=== PATIENT | male | born 1995 | race Caucasian/White ===

== ENCOUNTER 2017-04-06 04:39 | Emergency (ER) | payer SELFPAY ==
[~2017-04-06] VITALS: Ht 167.6 cm; Wt 80.0 kg
[2017-04-06 04:41] VITALS: Ht 167.6 cm; Wt 80.0 kg
[2017-04-06] MEDS ORDERED: ALBUTEROL 0.083% (NEB) 2.5 MG/3 ML AMP HHN STA (04:48)
[2017-04-06 04:50] VITALS: TEMP 98
[2017-04-06] MEDS ORDERED: predniSONE 20 MG TAB PO ONE (05:00)
[2017-04-06] MEDS ORDERED: IPRATROPIUM (NEB) 0.5 MG/2.5 ML AMP HHN ONE (05:00)
[2017-04-06 05:30] VITALS: RESP 17
[2017-04-06] MEDS ORDERED: PRED20TA PO (06:02)
[2017-04-06] MEDS ORDERED: ALBU18HF INHALATION (06:02)
--- NOTE | 2017-04-06 06:09 | ERD ---
ER Documentation Chief Complaint Date/Time DATE: 04/06/17 TIME: 06:05 Chief Complaint short of breath tonight after an argument HPI 1-year-old male presents with shortness of breath and wheezing it feels like his asthma exacerbation after he was in an argument. Set asthma for most of his life. Getting breathing treatment in the ambulance. Denies chest pain. Has not had fevers and chills lately. ROS All systems reviewed and are negative except as per history of present illness. Medications Home Meds Active Scripts Prednisone* (Prednisone*) 20 Mg Tab, 40 MG PO DAILY, #4 TAB Prov:DUKE VALDIVIA DO 04/06/17 Albuterol Sulfate* (Ventolin HFA*) 18 Gm Hfa.aer.ad, 2 PUFF INHALATION Q4H, #1 INHALER Prov:DUKE VALDIVIA DO 04/06/17 Allergies Allergies: Coded Allergies: No Known Allergy (Unverified , 04/06/17) PMhx/Soc History of Surgery: Yes (R) HAND) Hx Respiratory Disorders: Yes (ASTHMA) Hx Alcohol Use: Yes Hx Substance Use: No Hx Tobacco Use: No Smoking Status: Never smoker Physical Exam Vitals Vital Signs Date Time Temp Pulse Resp B/P Pulse Ox O2 Delivery O2 Flow Rate FiO2 04/06/17 05:30 83 17 97/70 100 04/06/17 05:28 80 20 99 Nasal Cannula 1.0 04/06/17 04:50 98.0 98 17 119/74 100 Room Air 04/06/17 04:50 Nasal Cannula 2.0 04/06/17 04:41 98.1 104 22 140/68 100 Physical Exam Const: [] Mild distress Resp: Mild bilateral anterior wheezing, no accessory muscle use Cardio: Regular rate and rhythm, no murmurs Skin: No petechiae or rashes Ext: No cyanosis, or edema Neur: Awake and alert and oriented 3, no focal deficits Psych: Normal Mood and Affect Results 24 hrs Current Medications Medications (Trade) Dose Ordered Sig/Ambrose Route PRN Reason Start Time Stop Time Status Last Admin Dose Admin Albuterol (Proventil 0.083% (Neb)) 5 mg ONCE STAT HHN 04/06/17 04:48 04/06/17 04:50 DC 04/06/17 05:25 Ipratropium [place] (Atrovent 0.02% (Neb)) 0.5 mg ONCE ONCE HHN 04/06/17 05:00 04/06/17 05:01 DC 04/06/17 05:28 Prednisone (Prednisone) 60 mg ONCE ONCE PO 04/06/17 05:00 04/06/17 05:01 DC 04/06/17 05:12 Procedures/MDM Mild to moderate asthma exacerbation. Patient was given 5 mg albuterol and 5 mg of Atrovent as well as a prednisone tab. He felt much better after the treatment and stated he was asymptomatic. We will discharge with a Ventolin inhaler and prednisone for 4 days. Return precautions given for Departure Diagnosis: Primary Impression: Asthma exacerbation Condition: Stable Patient Instructions: My Asthma Symptom Diary Referrals: [facility] YOU HAVE RECEIVED A MEDICAL SCREENING EXAM AND THE RESULTS INDICATE THAT YOU DO NOT HAVE A CONDITION THAT REQUIRES URGENT TREATMENT IN THE EMERGENCY DEPARTMENT. FURTHER EVALUATION AND TREATMENT OF YOUR CONDITION CAN WAIT UNTIL YOU ARE SEEN IN YOUR DOCTORS OFFICE WITHIN THE NEXT 1-2 DAYS. IT IS YOUR RESPONSIBILITY TO MAKE AN APPOINTMENT FOR FOLOW-UP CARE. IF YOU HAVE A PRIMARY DOCTOR --you should call your primary doctor and schedule an appointment IF YOU DO NOT HAVE A PRIMARY DOCTOR YOU CAN CALL OUR PHYSICIAN REFERRAL HOTLINE AT IF YOU CAN NOT AFFORD TO SEE A PHYSICIAN YOU CAN CHOSE FROM THE FOLLOWING [facility] [id number] [facility]. [facility] [address] [facility] [facility] [address] [facility] [facility] [address] [facility]. [facility] [address] [facility]. [facility]. [address] Additional Instructions: Call your primary care doctor TOMORROW for an appointment during the next 1-2 days.See the doctor sooner or return here if your condition worsens before your appointment time. DUKE VALDIVIA DO Apr 06, 2017 06:09
[2017-04-06 06:24] VITALS: BP 103/74; PULSE 91
== END 2017-04-06 08:30 | disposition home or self-care (01) ==
LOC: E/R 04:39
DX: J45.901 Unspecified asthma with (acute) exacerbation (principal)
CPT/HCPCS: 94664; 99284; J7512